=== PATIENT | male | born 1975 | race Hispanic/Latino ===

== ENCOUNTER → 2018-11-01 | Day surgery (SDC) | payer OTHER ==
[2018-10-29 13:42] LABS: BASOPHILS % 0.7 % (0.0-1.0); EOSINOPHILS # (AUTO) 0.1 (0.0-0.4); EOSINOPHILS % 1.6 % (0.0-6.0); HEMATOCRIT 41.1 % (38.2-49.6); HEMOGLOBIN 14.2 g/dL (14.0-18.0); LYMPHOCYTES # (AUTO) 1.7 (1.0-3.2); LYMPHOCYTES % 29.8 % (18.0-39.1); MEAN CORPUSCULAR HEMOGLOBIN 31.8 pg (28-32); MEAN CORPUSCULAR HGB CONC 34.5 g/dL (31-35); MEAN CORPUSCULAR VOLUME 91.9 fL (81-99); MONOCYTES # (AUTO) 0.4 (0.2-0.8); MONOCYTES % 7.7 % (4.4-11.3); NEUTROPHILS # (AUTO) 3.4 (2.1-6.9); NEUTROPHILS % 59.7 % (38.7-80.0); PLATELET COUNT 191 x10e3/uL (140-360); RED BLOOD COUNT 4.47 x10e6/uL (4.3-5.7); RED CELL DISTRIBUTION WIDTH 12.3 % (11.7-14.4)
[2018-10-29 13:54] LABS: BLOOD UREA NITROGEN 15 mg/dL (7-26); BUN/CREATININE RATIO 17 (6-25); CALCIUM 9.2 mg/dL (8.4-10.2); CARBON DIOXIDE 25 mmol/L (22-29); CHLORIDE 101 mmol/L (98-107); CREATININE, SERUM 0.89 mg/dL (0.72-1.25); EST GLOMERULAR FILTRATION RATE > 60 ML/MIN (60-); GLUCOSE 103 mg/dL (74-118); SODIUM 136 mmol/L (136-145)
[~2018-11-01] MED LIST: ACETAMINOPHEN 1000 MG/100 ML IV ONE; BUPIVACAINE 0.5%/EPI 30 ML SDV INJ ONE; CEFAZOLIN SOD 1 GM VIAL ONE; CEFAZOLIN SOD 1 GM/NS 50ML 50 ML IV ONE; DEXAMETHASONE SOD PHOS INJ 4 MG/ML VIAL ONE; FENTANYL CITRATE/PF 100MCG/2 ML INJ ONE; KETOROLAC TROMETHAMINE 30 MG/ML VIAL ONE; LIDOCAINE HCL 2% LOCAL INJ 5 ML SDV VIAL INJ ONE; MIDAZOLAM HCL 2 MG/2 ML VIAL ONE; ONDANSETRON HCL INJ 2MG/ML 2ML 2 MG/ML VIAL ONE; PROMETHAZINE HCL (IM) 25 MG/ML VIAL ONE; PROPOFOL IV EMULSION 10 MG/ML 20 ML VIAL ONE; ROCURONIUM BROMIDE 10 MG/ML 5ML VIAL ONE; SEVOFLURANE INHAL SOLN 250 ML PEN BTL ONE
[2018-11-01 11:20] VITALS: BP 106/67
--- NOTE | 2018-11-02 03:15 | Operative Report ---
DATE OF PROCEDURE: 11/01/2018 SURGEON: Rei Heard MD PREOPERATIVE DIAGNOSIS: Bilateral inguinal hernias. POSTOPERATIVE DIAGNOSIS: Bilateral inguinal hernias. PROCEDURE PERFORMED: Staged repair of bilateral inguinal hernias, starting with the right side first. INDICATION AND FINDINGS: This patient is a 43-year-old male, who complained of pain on the right side after doing some heavy lifting at work several days ago. He also noticed discomfort in the left groin. Physical examination revealed bilateral inguinal hernias with the right hernia being larger than the left. This right inguinal hernia was visible. INTEROPERATIVE FINDINGS: The patient had a pantaloon type of hernia with both direct and indirect component as well as lipoma of the cord. UltraPro Hernia System was placed. DESCRIPTION OF THE PROCEDURE: With patient lying on the operation table in the supine position, after administration of general endotracheal anesthesia, he was prepped and draped for repair of right inguinal hernia. Preventive anesthesia was given with 0.25% Marcaine with epinephrine as an ilioinguinal nerve block and an incisional nerve block. A transverse groin incision was made, deepened through the skin, subcutaneous tissue, Linda fascia until the external oblique aponeurosis was identified. This was incised along the course of the fibers, transecting the external inguinal ring. were developed. The cord was mobilized at the level of the pubic tubercle and retracted away from the open field by Sawyer drain. The was incised. The cord was explored and direct hernia sac was found, highly ligated with transfixion suture of 2-0 silk. A lipoma was transected and tied off with 2-0 Vicryl, and then the transversalis fascia was incised. A pocket was created using blunt dissection to accommodate the mesh and then the UltraPro Hernia System was deployed in the preperitoneal space with the underlay part of the mesh over the direct space and the overlay part of the mesh over the inguinal canal floor. A slit was made to accommodate the cord, then the mesh was secured to local tissue using a series of interrupted 2 Ethibond suture. The wound was irrigated. Bleeding points were cauterized, then the wound was closed in layers using 2-0 Vicryl for the skin of oblique aponeurosis, 2-0 plain catgut for the soft tissues. The skin was closed using curt. At the end of the procedure, the sponge and instrument counts were pronounced correct. The patient's family was informed of intraoperative findings and given instructions. MD LISA Mcleod/BRAXTON /[id number]
== END | disposition home or self-care (01) ==
LOC: OR 05:30
PROVIDERS: ATTEND Surgery
DX: K40.20 Bilateral inguinal hernia, without obstruction or gangrene, not specified as recurrent (principal); D17.6 Benign lipomatous neoplasm of spermatic cord; Z01.810 Encounter for preprocedural cardiovascular examination; Z01.812 Encounter for preprocedural laboratory examination; Z68.32 Body mass index [BMI] 32.0-32.9, adult
CPT/HCPCS: 36415; 49505; 80048; 85025; 88302; 93005; C1781; J0131; J0690 ×2; J1100; J1885; J2001; J2250; J2405; J2550; J2704